=== PATIENT | male | born 1965 | race Caucasian/White ===

== ENCOUNTER 2017-02-25 07:45 | Emergency (ER) | payer BC ==
--- NOTE | 2017-02-25 08:13 | RAD ---
INDICATION: 2 days productive cough, fever, shortness of breath, headache. COMPARISON: March 13, 2015 chest radiograph and April 12, [address] TECHNIQUE: Dual energy PA and routine lateral views of the chest were obtained. REPORT: Minimal prominence of the interstitial markings without change. Probable tiny bilateral mid to upper lung zone calcified granulomas without change. No alveolar consolidation, suspicious focal pulmonary lesion, pleural effusion, pneumothorax. The heart, pulmonary vasculature, and mediastinal contours are unremarkable. Minimal multilevel thoracic spine degenerative spondylosis. IMPRESSION: No evidence for pneumonia. No evidence for acute intrathoracic disease.
[2017-02-25] MEDS ORDERED: Ketorolac INJ* 30 MG/ML 1 ML VIAL IV ONE (08:25)
[2017-02-25] MEDS ORDERED: NS 0.9% 1000 ML* 2,000 ML IV ONE (08:25)
[2017-02-25] MEDS ORDERED: Ondansetron INJ* 2 MG/ML VIAL IV ONE (08:25)
[2017-02-25 08:53] LABS: ABS Basophils 0 10^3/ul (0-0.2); ABS Eosinophils 0 10^3/ul (0-0.6); ABS Lymphocytes 0.6 10^3/ul (1.0-4.8); ABS Monocytes 0.7 10^3/ul (0-0.8); ABS Neutrophils 4.3 10^3/ul (1.5-7.7); ABS Nucleated RBC 0 10^3/ul; Eosinophil % 0.4 % (0-6); Hematocrit 40 % (42-52); Hemoglobin 13.9 g/dl (14.0-18.0); Mean Corpuscular HGB Conc 34 g/dl (31-36); Mean Corpuscular Hemoglobin 31 pg (27-31); Mean Corpuscular Volume 89 fL (80-94); Mean Platelet Volume 8 um3 (7.4-10.4); Nucleated Red Blood Cells % 0; Platelet Count 141 10^3/ul (150-450); Red Blood Count 4.52 10^6/ul (4.0-5.4); Red Cell Distribution Width 14 % (10.5-15); White Blood Count 5.5 10^3/ul (3.5-10.8)
[2017-02-25 09:04] LABS: INR 1.02 (0.77-1.02)
[2017-02-25 09:14] LABS: EGFR Non-African American 85.3 (>60)
[2017-02-25] MEDS ORDERED: Iohexol 350* (CONTRAST) 500 ML MDV IV ONE (09:22)
[2017-02-25 09:48] LABS: Urine Appearance Clear; Urine Blood Negative (Negative); Urine Color Yellow; Urine Ketones Trace (Negative); Urine Protein Negative (Negative); Urine Specific Gravity 1.026 (1.010-1.030); Urine Urobilinogen Negative (Negative)
--- NOTE | 2017-02-25 10:13 | RAD ---
Indication: Shortness of breath. Contrast: Administered 72.1 ml of OMNIPAQUE 350 mg/ml CTA of the chest was performed after IV contrast administration. Coronal and sagittal reconstructed images were obtained. The pulmonary arterial tree is well opacified. There are no filling defects present to suggest pulmonary embolus. There is no mediastinal or hilar adenopathy. The lung mora demonstrate no evidence of pleural fluid, nodules or masses. No evidence of alveolar consolidation is noted. The visualized abdominal organs are unremarkable. IMPRESSION: No definite pulmonary embolus is noted.
--- NOTE | 2017-02-25 10:48 | ED ---
Celeste Rodriguez Abhishek, scribed for Ron Salinas MD on 02/25/17 at 0839 . Influenza-Like Illness - HPI Summary HPI Summary: This patient is a 51 year old M presenting to [facility] with a chief complaint of productive cough since 4 days ago (02/23/17 on 1200). The cough is described as productive (brown sputum). The onset of the cough was 4 days. The pt said the productive cough was clear at onset and then became yellow and tannish sputum. The pt states that step daughter is also sick at home. The patient rates the pain 5/10 in severity. Symptoms aggravated by nothing. Symptoms alleviated by nothing. Patient reports MEZA, rhinorrhea, left ear pain, sore throat, chest pain secondary to cough, nausea, loss of appetite, dark urine, body aches, chills, subjective fever, lack of BM and abd pain. Patient denies diarrhea, dysuria, and calf pain. Pt states other stated symptoms began 2 days. - History of Current Complaint Chief Complaint: EDShortnessOfBreath Hx Obtained From: Patient Onset/Duration: Gradual Onset, Lasting Days - cough since 4 days ago, other symptoms onset 2 days ago Associated Signs & Symptoms: Fever, Myalgia - body aches, Cough, Sore Throat, Headache - Allergy/Home Medications Allergies/Adverse Reactions: Allergies Allergy/AdvReac Type Severity Reaction Status Date / Time No Known Allergies Allergy Verified 01/28/12 09:15 PMH/Surg Hx/FS Hx/Imm Hx Endocrine/Hematology History: Reports: Hx Thyroid Disease - Hypothyroid Denies: Hx Anticoagulant Therapy, Hx Diabetes Cardiovascular History: Reports: Hx Angina, Other Cardiovascular Problems/ Disorders - Irregular heart rhythms Denies: Hx Hypertension, Hx Pacemaker/ICD Respiratory History: Denies: Hx Asthma, Hx Chronic Obstructive Pulmonary Disease (COPD), Other Respiratory Problems/Disorders History: Reports: Other Problems/Disorders - prostatitis Denies: Hx Renal Disease Musculoskeletal History: Denies: Hx Osteoporosis Sensory History: Reports: Hx Contacts or Glasses, Hx Vision Problem Denies: Hx Hearing Aid Opthamlomology History: Reports: Hx Contacts or Glasses, Hx Vision Problem Neurological History: Reports: Hx Headaches, Hx Migraine - occular migraines also Denies: Hx Dementia, Hx Seizures Psychiatric History: Denies: Hx Panic Disorder, Hx Substance Abuse - Surgical History Surgery Procedure, Year, and Place: VASECTOMY -2012 - Immunization History Date of Tetanus Vaccine: 2007 Date of Influenza Vaccine: 11/10 Infectious Disease History: No Infectious Disease History: Denies: Hx Hepatitis, Hx Human Immunodeficiency Virus (HIV), Traveled Outside the [place] in Last 30 Days - Family History Known Family History: Positive: Cardiac Disease, Diabetes, Other - TIA - Social History Occupation: Employed Full-time Alcohol Use: Occasionally Substance Use Type: Reports: None Smoking Status (MU): Never Smoked Tobacco Review of Systems Positive: Fever - subjective, Chills Eyes: Negative ENT: Other - rhinorrhea Positive: Sore Throat, Ear Ache - left ear Positive: Chest Pain - secondary to cough Positive: Cough - productive (clear sputum which later became yellow and tannish sputum) Positive: Abdominal Pain, Nausea, Other - loss of appetite, lack of BM. Negative: Diarrhea Genitourinary: Other - "dark urine" Negative: dysuria Positive: Myalgia - body aches, Other - Negative calf pain Skin: Negative Positive: Headache Psychological: Normal All Other Systems Reviewed And Are Negative: Yes Physical Exam - Summary Physical Exam Summary: General: Mildly ill appearing, Skin: warm, color reflects adequate perfusion, dry Head: normal Eyes: EOMI, HUA ENT: normal, Oral mucosa slightly dry, Posterior pharynx no erythema, rhinorrhea Neck: supple, nontender Respiratory: CTA, breath sounds present, Mildly short of breath Cardiovascular: RRR Abdomen: soft, nontender Bowel: present Musculoskeletal: normal, strength/ROM intact, no edema Neurological: normal, sensory/motor intact, A&O x3, no neurological deficit. Psychological: affect/mood appropriate Triage Information Reviewed: Yes Vital Signs On Initial Exam: Initial Vitals Temp Pulse Resp BP Pulse Ox 99.1 F 96 24 108/54 99 02/25/17 07:46 02/25/17 07:46 02/25/17 07:46 02/25/17 07:46 02/25/17 07:46 Vital Signs Reviewed: Yes - Kimberly Coma Scale Coma Scale Total: 15 Diagnostics - Vital Signs Vital Signs Temp Pulse Resp BP Pulse Ox 02/25/17 07:46 99.1 F 96 24 108/54 99 - Laboratory Lab Results: Lab Results 02/25/17 Range/Units 08:14 Influenza A (Rapid) Negative (Negative) Influenza B (Rapid) Negative (Negative) Result Diagrams: 02/25/17 08:42 02/25/17 08:42 Lab Statement: Any lab studies that have been ordered have been reviewed, and results considered in the medical decision making process. - Radiology Chest X-ray Radiology Interpretation Completed By: Radiologist - CXR reveals, per radiologist No evidence for pneumonia. No evidence for acute intrathoracic disease. ED physician has reviewed this radiology report and agrees. - CT Chest CTA CT Interpretation Completed By: Radiologist - Chest CTA reveals No definite pulmonary embolus is noted. ED Physician has reviewed the radiology report. - EKG 0833 EKG Rhythm: Sinus Rhythm - 75 bpm EKG Interpretation: EKG taken at 0833 - Additional Comments Diagnostic Additional Comments: An EKG at [address] elevation at the anterior leads probable normal early repolarization and Nonspecific Intraventricular conduction delay Flu Symptom Course/Dx - Course Course Of Treatment: DISCUSSED RESULTS WITH PATIENT. F/U PMD; RETURN IF WORSE. - Diagnoses Provider Diagnoses: Bronchospasm with bronchitis, acute, Dyspnea Discharge - Discharge Plan Condition: Stable Disposition: HOME Prescriptions: Albuterol HFA INHALER* [Ventolin HFA Inhaler*] 2 puff INH Q4H PRN #2 mdi PRN Reason: Dyspnea Azithromyxin MIGUELANGEL (NF) [Z-Miguelangel (Zithromax) 250 mg tabs #6] 2 tab PO .TODAY, THEN 1 DAILY #6 tab Patient Education Materials: Acute Bronchitis (ED), Dyspnea (ED), Bronchospasm (ED) Forms: *Work Release Referrals: Anahy HINTON,Bayron [Primary Care Provider] - Additional Instructions: FOLLOW UP WITH YOUR DOCTOR. RETURN TO THE EMERGENCY DEPARTMENT FOR ANY WORSENING OF YOUR CONDITION OR QUESTIONS OR CONCERNS. The documentation as recorded by the Celeste franco Abhishek accurately reflects the service I personally performed and the decisions made by me, Ron Salinas MD.
[2017-02-25 11:11] VITALS: BP 101/56
== END 2017-02-25 11:11 | disposition home or self-care (01) ==
LOC: ED 07:45
DX: J20.9 Acute bronchitis, unspecified (principal); R06.00 Dyspnea, unspecified
CPT/HCPCS: 36415; 71020; 71275; 80053; 81003; 83605; 83690; 83735; 83880; 84443; 84484; 85025; 85379; 85610; 85730; 86140; 87502; 93005; 96361; 96374; 96375; 99283; J1885; J2405; Q9967

== ENCOUNTER 2017-04-18 22:32 | Emergency (ER) | payer BC ==
[2017-04-19 00:07] LABS: ABS Basophils 0 10^3/ul (0-0.2); ABS Eosinophils 0.1 10^3/ul (0-0.6); ABS Lymphocytes 1.3 10^3/ul (1.0-4.8); ABS Monocytes 0.6 10^3/ul (0-0.8); ABS Neutrophils 7.6 10^3/ul (1.5-7.7); ABS Nucleated RBC 0 10^3/ul; Eosinophil % 0.6 % (0-6); Hematocrit 42 % (42-52); Hemoglobin 14.2 g/dl (14.0-18.0); Lymphocyte % 13.6 % (25-47); Mean Corpuscular HGB Conc 34 g/dl (31-36); Mean Corpuscular Hemoglobin 30 pg (27-31); Mean Corpuscular Volume 89 fL (80-94); Mean Platelet Volume 8 um3 (7.4-10.4); Nucleated Red Blood Cells % 0; Platelet Count 167 10^3/ul (150-450); Red Blood Count 4.66 10^6/ul (4.0-5.4); Red Cell Distribution Width 14 % (10.5-15); White Blood Count 9.6 10^3/ul (3.5-10.8)
[2017-04-19 00:14] LABS: INR 0.98 (0.77-1.02)
[2017-04-19 00:17] LABS: EGFR Non-African American 81.3 (>60)
[2017-04-19] MEDS ORDERED: metroNIDAZOLE TAB* 250 MG PO ONE (00:45)
[2017-04-19] MEDS ORDERED: Ciprofloxacin TAB* 500 MG PO ONE (00:45)
[2017-04-19] MEDS ORDERED: HYDROcodone/ACETAMIN 5-325 MG* 1 TAB PO ONE (00:45)
[2017-04-19 01:25] VITALS: BP 126/84
--- NOTE | 2017-04-19 05:06 | ED ---
Omar Rodriguez Julia, scribed for Randall Palmer MD on 04/18/17 at 2341 . GI/ HPI - HPI Summary HPI Summary: This patient is a 51 year old M presenting to [facility] accompanied by his with a chief complaint of severe pain with BM at 16:00 with cramping and bright red bloody diarrhea since then. Patient reports sweating an nausea with initial BM. Patient denies lightheaded dizziness. The patient rates the pain 10/10 in severity with initial BM currently rates a 4/10. Patient is not taking blood thinners. - History of Current Complaint Chief Complaint: EDAbdPain Time Seen by Provider: 04/18/17 23:35 Stated Complaint: ABD PAIN, BLOODY STOOL Hx Obtained From: Patient Onset/Duration: Started Hours Ago, Still Present Timing: Constant, Lasting Hours Severity: Severe Current Severity: Moderate Pain Intensity: 4 Location of Pain: Rectal Associated Signs and Symptoms: Positive: Rectal Pain, Bright Red Blood w/Stool, Diarrhea - Allergy/Home Medications Allergies/Adverse Reactions: Allergies Allergy/AdvReac Type Severity Reaction Status Date / Time No Known Allergies Allergy Verified 01/28/12 09:15 PMH/Surg Hx/FS Hx/Imm Hx Endocrine/Hematology History: Reports: Hx Thyroid Disease - Hypothyroid Denies: Hx Anticoagulant Therapy, Hx Diabetes Cardiovascular History: Reports: Hx Angina, Other Cardiovascular Problems/ Disorders - Irregular heart rhythms Denies: Hx Hypertension, Hx Pacemaker/ICD Respiratory History: Denies: Hx Asthma, Hx Chronic Obstructive Pulmonary Disease (COPD), Other Respiratory Problems/Disorders History: Reports: Other Problems/Disorders - prostatitis Denies: Hx Renal Disease Musculoskeletal History: Denies: Hx Osteoporosis Sensory History: Reports: Hx Contacts or Glasses, Hx Vision Problem Denies: Hx Hearing Aid Opthamlomology History: Reports: Hx Contacts or Glasses, Hx Vision Problem Neurological History: Reports: Hx Headaches, Hx Migraine - occular migraines also Denies: Hx Dementia, Hx Seizures Psychiatric History: Denies: Hx Panic Disorder, Hx Substance Abuse - Surgical History Surgery Procedure, Year, and Place: VASECTOMY -2012 - Immunization History Date of Tetanus Vaccine: 2007 Date of Influenza Vaccine: 11/10 Infectious Disease History: No Infectious Disease History: Denies: Hx Hepatitis, Hx Human Immunodeficiency Virus (HIV), Traveled Outside the [place] in Last 30 Days - Family History Known Family History: Positive: Cardiac Disease, Diabetes, Other - TIA - Social History Alcohol Use: Occasionally Substance Use Type: Reports: None Smoking Status (MU): Never Smoked Tobacco Review of Systems Positive: Skin Diaphoresis Gastrointestinal: Other - painful Bm Positive: Diarrhea, Nausea Negative: Weakness - and dizziness All Other Systems Reviewed And Are Negative: Yes Physical Exam - Summary Physical Exam Summary: Appearance: Well appearing, no pain distress Skin: warm, dry, reflects adequate perfusion Head/face: normal Eyes: EOMI, HUA ENT: normal Neck: supple, non-tender Respiratory: CTA, breath sounds present Cardiovascular: RRR, pulses strong and symmetrical Abdomen: non-tender, soft, no masses Bowel: hypoactive sounds Musculoskeletal: normal, strength/ROM intact Neuro: normal, sensory motor intact, A&Ox3 Rectal: no internal or external hemorrhoids, blood tinged stool, no active bleeding Triage Information Reviewed: Yes Vital Signs On Initial Exam: Initial Vitals Temp Pulse Resp BP Pulse Ox 98.6 F 73 16 131/80 99 04/18/17 22:38 04/18/17 22:38 04/18/17 22:38 04/18/17 22:38 04/18/17 22:38 Vital Signs Reviewed: Yes Diagnostics - Vital Signs Vital Signs Temp Pulse Resp BP Pulse Ox 04/18/17 22:38 98.6 F 73 16 131/80 99 - Laboratory Lab Results: Lab Results 04/18/17 04/18/17 04/18/17 Range/Units 23:50 23:50 23:50 WBC 9.6 (3.5-10.8) 10^3/ul RBC 4.66 (4.0-5.4) 10^6/ul Hgb 14.2 (14.0-18.0) g/dl Hct 42 (42-52) % MCV 89 (80-94) fL MCH 30 (27-31) pg MCHC 34 (31-36) g/dl RDW 14 (10.5-15) % Plt Count 167 (150-450) 10^3/ul MPV 8 (7.4-10.4) um3 Neut % (Auto) 79.3 (38-83) % Lymph % (Auto) 13.6 L (25-47) % Gibson % (Auto) 6.2 (1-9) % Eos % (Auto) 0.6 (0-6) % Baso % (Auto) 0.3 (0-2) % Absolute Neuts (auto) 7.6 (1.5-7.7) 10^3/ul Absolute Lymphs (auto) 1.3 (1.0-4.8) 10^3/ul Absolute Monos (auto) 0.6 (0-0.8) 10^3/ul Absolute Eos (auto) 0.1 (0-0.6) 10^3/ul Absolute Basos (auto) 0 (0-0.2) 10^3/ul Absolute Nucleated RBC 0 10^3/ul Nucleated RBC % 0 INR (Anticoag Therapy) 0.98 (0.77-1.02) APTT 29.7 (26.0-36.3) seconds Sodium 137 (133-145) mmol/L Potassium 3.6 (3.5-5.0) mmol/L Chloride 103 (101-111) mmol/L Carbon Dioxide 27 (22-32) mmol/L Anion Gap 7 (2-11) mmol/L BUN 14 (6-24) mg/dL Creatinine 0.98 (0.67-1.17) mg/dL Est GFR ( Amer) 104.5 (>60) Est GFR (Non-Af Amer) 81.3 (>60) BUN/Creatinine Ratio 14.3 (8-20) Glucose 106 H (70-100) mg/dL Lactic Acid (0.5-2.0) mmol/L Calcium 9.3 (8.6-10.3) mg/dL Total Bilirubin 0.80 (0.2-1.0) mg/dL AST 17 (13-39) U/L ALT 13 (7-52) U/L Alkaline Phosphatase 44 (34-104) U/L C-Reactive Protein 1.01 (< 5.00) mg/L Total Protein 6.9 (6.4-8.9) g/dL Albumin 4.3 (3.2-5.2) g/dL Globulin 2.6 (2-4) g/dL Albumin/Globulin Ratio 1.7 (1-3) Lipase 22 (11.0-82.0) U/L 04/18/17 Range/Units 23:50 WBC (3.5-10.8) 10^3/ul RBC (4.0-5.4) 10^6/ul Hgb (14.0-18.0) g/dl Hct (42-52) % MCV (80-94) fL MCH (27-31) pg MCHC (31-36) g/dl RDW (10.5-15) % Plt Count (150-450) 10^3/ul MPV (7.4-10.4) um3 Neut % (Auto) (38-83) % Lymph % (Auto) (25-47) % Gibson % (Auto) (1-9) % Eos % (Auto) (0-6) % Baso % (Auto) (0-2) % Absolute Neuts (auto) (1.5-7.7) 10^3/ul Absolute Lymphs (auto) (1.0-4.8) 10^3/ul Absolute Monos (auto) (0-0.8) 10^3/ul Absolute Eos (auto) (0-0.6) 10^3/ul Absolute Basos (auto) (0-0.2) 10^3/ul Absolute Nucleated RBC 10^3/ul Nucleated RBC % INR (Anticoag Therapy) (0.77-1.02) APTT (26.0-36.3) seconds Sodium (133-145) mmol/L Potassium (3.5-5.0) mmol/L Chloride (101-111) mmol/L Carbon Dioxide (22-32) mmol/L Anion Gap (2-11) mmol/L BUN (6-24) mg/dL Creatinine (0.67-1.17) mg/dL Est GFR ( Amer) (>60) Est GFR (Non-Af Amer) (>60) BUN/Creatinine Ratio (8-20) Glucose (70-100) mg/dL Lactic Acid 0.8 (0.5-2.0) mmol/L Calcium (8.6-10.3) mg/dL Total Bilirubin (0.2-1.0) mg/dL AST (13-39) U/L ALT (7-52) U/L Alkaline Phosphatase (34-104) U/L C-Reactive Protein (< 5.00) mg/L Total Protein (6.4-8.9) g/dL Albumin (3.2-5.2) g/dL Globulin (2-4) g/dL Albumin/Globulin Ratio (1-3) Lipase (11.0-82.0) U/L Result Diagrams: 04/18/17 23:50 04/18/17 23:50 Lab Statement: Any lab studies that have been ordered have been reviewed, and results considered in the medical decision making process. Re-Evaluation - Re-Evaluation 1 Re-Evaluation Time: 00:43 Change: Improved - bleeding stopped, still has abdominal cramping GIGU Course/Dx - Course Course Of Treatment: pt with lower abd cramping and some bloody diarrhea. 3 other pts with similar tonight. No active bleeding over observation in ED. Blood counts stable. Possible infectious colitis vs ischemic. No blood thinners. No anal or external source found. D/W GI, will arrange for close outpt f/u and possible c-scope. - Diagnoses Differential Diagnoses - Male: Constipation, Colitis, Enterocolitis, Gastroenteritis (Bacterial), Gastroenteritis (Viral), Hemorrhoids, Irritable Bowel Syndrome, Neoplasm, Rectal Fissure Provider Diagnoses: Lower GI bleed, Colitis - Physician Notifications Discussed Care Of Patient With: Adalberto Brannon Time Discussed With Above Provider: 00:56 Instructed by Provider To: Other - Pt should call in the morning, will schedule for a colonoscopy Discharge - Discharge Plan Condition: Good Disposition: HOME Prescriptions: Ciprofloxacin TAB* [Cipro 500 MG TAB*] 500 mg PO BID #14 tab Hyoscyamine Sulfate [Oscimin] 0.125 mg PO Q4H PRN #20 tab.rapdis PRN Reason: cramping metroNIDAZOLE [Flagyl 500 MG TAB] 500 mg PO TID #21 tab Patient Education Materials: Rectal Bleeding (ED), Colitis (ED) Forms: *Work Release Referrals: Antelmo Meléndez MD [Medical Doctor] - Bayron Higginbotham MD [Primary Care Provider] - Additional Instructions: Call Dr. Meléndez's office (GI doctor) first thing in the morning for an appt to be seen and likely have a colonoscopy. Return with repeat bleeding, fever, increased pain, worse or other concerns as discussed. The documentation as recorded by the Omar franco Julia accurately reflects the service I personally performed and the decisions made by me, Randall Palmer MD.
== END 2017-04-19 01:24 | disposition home or self-care (01) ==
LOC: ED 22:32
DX: K92.2 Gastrointestinal hemorrhage, unspecified (principal); K52.9 Noninfective gastroenteritis and colitis, unspecified; R11.0 Nausea; R19.7 Diarrhea, unspecified; R51 Headache
CPT/HCPCS: 36415; 80053; 83605; 83690; 85025; 85610; 85730; 86140; 87040; 99284; A9270-GY